=== PATIENT | male | born 1960 | race Caucasian/White ===

== ENCOUNTER 2017-10-17 07:31 | Observation (INO) | payer OTHER ==
[2017-10-14 12:21] LABS: BASOPHILS # (AUTO) 0.1 (0.0-0.1); EOSINOPHILS # (AUTO) 0.2 (0.0-0.4); EOSINOPHILS % 2.8 % (0.0-6.0); HEMATOCRIT 46.3 % (38.2-49.6); HEMOGLOBIN 15.9 g/dL (14.0-18.0); LYMPHOCYTES # (AUTO) 2.5 (1.0-3.2); MEAN CORPUSCULAR HEMOGLOBIN 30.8 pg (28-32); MEAN CORPUSCULAR HGB CONC 34.3 g/dL (31-35); MEAN CORPUSCULAR VOLUME 89.6 fL (81-99); MONOCYTES # (AUTO) 0.6 (0.2-0.8); MONOCYTES % 10.2 % (4.4-11.3); NEUTROPHILS # (AUTO) 2.7 (2.1-6.9); NEUTROPHILS % 44.7 % (38.7-80.0); PLATELET COUNT 241 x10e3/uL (140-360); RED BLOOD COUNT 5.17 x10e6/uL (4.3-5.7); RED CELL DISTRIBUTION WIDTH 11.9 % (11.7-14.4)
[~2017-10-17] VITALS: Ht 182.9 cm; Wt 102.1 kg
[~2017-10-17 07:31] MED LIST: ASPIR 8181 MG PO; BACITRACIN 50,000 UNIT VIAL ONE; CEFAZOLIN SOD 2 GM/D5W 50ML 50 ML IV ONE; CELECOXIB 200 MG CAP ONE; DEXAMETHASONE SOD PHOS 10 MG/1 ML VIAL ONE; GABAPENTIN 300 MG CAP ONE; LOTREL 5-20 MG1 EACH PO; MUPIROCIN 2% OINT 22 GM TUBE ONE; ROPIVACAINE 246.25 MG, EPINEPHRINE HCL 1:1000 0.5 MG, CLONIDINE HCL 0.08 MG, KETOROLAC ... INJ ONE; TRANEXAMIC ACID 1,000 MG/10 ML ML ONE
[2017-10-17] MEDS ORDERED: MUPIROCIN 2% OINT 22 GM TUBE ONE (09:08)
[2017-10-17] MEDS: SODIUM CHLORIDE 0.9% 1000ML 1,000 ML IV SCH ×2 (09:09→19:05)
[2017-10-17] MEDS ORDERED: DIPHENHYDRAMINE HCL INJ 50 MG/ML VIAL IM/IV PRN (09:15)
[2017-10-17] MEDS ORDERED: DOCUSATE SODIUM 100 MG CAP PO PRN (09:15)
[2017-10-17] MEDS ORDERED: ACETAMINOPHEN 650 MG SUPP PR PRN (09:15)
[2017-10-17] MEDS ORDERED: ONDANSETRON HCL INJ 2 MG/ML VIAL IV PRN (09:15)
[2017-10-17] MEDS ORDERED: PROMETHAZINE HCL (IM) 25 MG/ML VIAL INJ PRN (09:15)
[2017-10-17] MEDS ORDERED: ZOLPIDEM TARTRATE 5 MG TAB PO PRN (09:15)
[2017-10-17] MEDS ORDERED: HYDROCODONE/APAP 5MG-325MG TAB PO PRN (09:15)
--- NOTE | 2017-10-17 09:36 | Diagnostic Imaging Report ---
PROCEDURE: X-RAY LEFT KNEE, ONE OR TWO VIEWS COMPARISON: None. INDICATIONS:POST OP, LEFT KNEE SURGERY TODAY FINDINGS: See conclusion. CONCLUSION: Status post total left knee replacement with surrounding soft tissue swelling, air and ayesha consistent with recent surgery. No acute fractures. Dictated by: Jorge Vigil M.D. on 10/17/2017 at 9:45 Electronically approved by: Jorge Vigil M.D. on 10/17/2017 at 9:45
[2017-10-17] MEDS ORDERED: FENTANYL CITRATE/PF 100MCG/2 ML INJ ONE ×2 (09:55→18:30)
[2017-10-17 12:43] VITALS: BP 124/79
[2017-10-17 13:10] VITALS: BP 124/79
[2017-10-17 13:25] VITALS: BP 124/79
[2017-10-17 13:29] VITALS: BP 124/79
[2017-10-17] MEDS: ACETAMINOPHEN 1000 MG/100 ML IV SCH ×3 (13:50→23:02)
[2017-10-17] MEDS ORDERED: CEFAZOLIN SOD 1 GM/NS 50ML 50 ML IV SCH (14:00)
[2017-10-17] MEDS: CEFTRIAXONE SOD 1 GM VIAL IV SCH ×2 (15:05→22:14)
--- NOTE | 2017-10-17 15:45 | Operative Report ---
DATE OF PROCEDURE: October 17, 2017 DOCTOR ASSISTANT: Tyrese Alaniz PA-C The patient was brought to the operating room for induction of anesthesia. Throughout this case, my PA's assistance was necessary for retraction of soft tissue and positioning of the extremity. This allows for efficient and technically successful execution of the operation and is considered medically necessary. PREOPERATIVE DIAGNOSIS: Osteoarthritis, left knee. POSTOPERATIVE DIAGNOSIS: Osteoarthritis, left knee. PROCEDURE: Left total knee arthroplasty. INDICATIONS: The patient is a 57-year-old gentleman who has advanced osteoarthritis in his left knee. He has failed extensive conservative management under the care of outside physicians. He states the symptoms are severely compromising his quality of life. He is motivated to proceed with a left total knee replacement. The risks, benefits, hospital stay, recovery and realistic expectations have been discussed at length. All of his questions have been answered. He states he understands and wishes to proceed. DESCRIPTION OF PROCEDURE: The patient was brought to the operating room and placed under general anesthetic. He received a regional block, prophylactic antibiotics and tranexamic acid in the holding area. His left lower extremity was prepped and draped in a sterile manner. A preoperative time out was performed. The extremity was exsanguinated, and a proximal tourniquet was inflated to 300 mmHg. A standard anterior approach with a medial parapatellar arthrotomy was performed. Soft-tissue releases were performed to bring the knee up into flexion with the patella everted. Marginal osteophytes and meniscal remnants were removed. The cruciate ligaments were sacrificed. A [employer] II posterior stabilized knee system was used throughout the case. An extramedullary cutting guide was used to resect the proximal tibia. The tibial baseplate was noted to be a size 7. The central fin punch was impacted, and attention was directed towards the distal femur. An intramedullary cutting guide was used to resect the distal femur in 6 degrees of valgus and external rotation referenced off of a combination of landmarks including Shawnee's line, the epicondylar axis and the posterior condyles. The femoral component was also noted to be a size number 7. The anterior and posterior cuts were made. Trial reductions were performed. The patient was noted to have full range of motion and excellent stability in both flexion and extension with a 9 mm ultracongruent tibial insert. The patella was then resurfaced with a 32 mm x 9 mm patellar button. The thickness was checked before and after resurfacing and was exactly 26 mm each time. Patellar tracking was noted to be concentric. The trial implants were then all removed. A 100 mL premixed pericapsular injection was then placed into the tissue around the knee joint. The knee was thoroughly irrigated with a shower-tip pulsatile lavage. The components were then cemented into place using a single mix of high-viscosity Simplex cement preloaded with antibiotics. Care was taken to remove all extravasated cement. The wound was further irrigated while the cement cured. The arthrotomy was then carefully closed with interrupted #1 Ethibond. The knee was put through flexion and extension to ensure a secure closure. The skin was closed with subcuticular Vicryl and ayesha. A sterile bandage was applied. The patient was extubated and transported to the recovery room in stable condition. Blood loss was minimal. All needle and sponge counts were correct. Job#: [id number]
[2017-10-17 16:16] VITALS: BP 120/68
[2017-10-17] MEDS: CELECOXIB 100 MG CAP PO SCH (17:24)
[2017-10-17] MEDS: ASPIRIN 325 MG TAB PO SCH (17:24)
[2017-10-17] MEDS ORDERED: PHENYLEPHRINE HCL 1% 10 MG/ML VIAL ONE (18:19)
[2017-10-17] MEDS ORDERED: VASOPRESSIN INJ 20 UNIT/ML VIAL ONE (18:19)
[2017-10-17] MEDS ORDERED: EPHEDRINE SULFATE INJ 50 MG/10 ML SYR ONE (18:20)
[2017-10-17] MEDS ORDERED: LIDOCAINE HCL 2% LOCAL INJ 5 ML SDV VIAL INJ ONE (18:20)
[2017-10-17] MEDS ORDERED: DEXAMETHASONE SOD PHOS INJ 4 MG/ML VIAL ONE (18:20)
[2017-10-17] MEDS ORDERED: KETOROLAC TROMETHAMINE 30 MG/ML VIAL ONE (18:20)
[2017-10-17] MEDS ORDERED: SEVOFLURANE INHAL SOLN 250 ML PEN BTL ONE (18:20)
[2017-10-17] MEDS ORDERED: ONDANSETRON HCL INJ 2 MG/ML VIAL ONE (18:20)
[2017-10-17] MEDS ORDERED: PROPOFOL IV EMULSION 10 MG/ML 20 ML VIAL ONE (18:20)
[2017-10-17] MEDS ORDERED: LIDOCAINE 2% /EPINEPHRINE 20 ML SDV INJ ONE (18:29)
[2017-10-17] MEDS ORDERED: ROPIVACAINE 0.5% 5 MG/ML 30 ML SDV ONE (18:29)
[2017-10-17] MEDS ORDERED: MIDAZOLAM HCL 2 MG/2 ML VIAL ONE (18:30)
[2017-10-17] MEDS ORDERED: MORPHINE SULFATE INJ 10 MG/ML ONE (18:30)
[2017-10-17 20:00] VITALS: BP 126/65
[2017-10-18] VITALS: BP 115/59
[2017-10-18 00:14] VITALS: BP 115/59
[2017-10-18] MEDS: HYDROCODONE/APAP 7.5MG-325MG 1 EA TAB PO PRN ×4 (02:09→13:38)
[2017-10-18] MEDS: KETOROLAC TROMETHAMINE 30 MG/ML VIAL IV PRN ×2 (03:07→10:49)
[2017-10-18 04:00] VITALS: BP 122/67
[2017-10-18] MEDS: ACETAMINOPHEN 1000 MG/100 ML IV SCH (04:38)
[2017-10-18] MEDS: SODIUM CHLORIDE 0.9% 1000ML 1,000 ML IV SCH ×2 (04:40→15:09)
[2017-10-18] MEDS: CEFTRIAXONE SOD 1 GM VIAL IV SCH ×2 (06:16→15:06)
[2017-10-18 07:23] LABS: HEMATOCRIT 39.2 % (38.2-49.6); HEMOGLOBIN 13.3 g/dL (14.0-18.0)
[2017-10-18] MEDS: CELECOXIB 100 MG CAP PO SCH (08:20)
[2017-10-18] MEDS: ASPIRIN 325 MG TAB PO SCH (08:20)
[2017-10-18 08:54] VITALS: BP 128/72
[2017-10-18] MEDS ORDERED: AMLODIPINE BESYLATE PO SCH (09:00)
[2017-10-18] MEDS ORDERED: BENAZEPRIL HCL 10 MG TAB PO SCH (09:00)
[2017-10-18] MEDS ORDERED: AMLODIPINE BESYLATE 5 MG TAB PO SCH (09:00)
[2017-10-18] MEDS ORDERED: BENAZEPRIL PO SCH (09:00)
[2017-10-18] MEDS ORDERED: [UNRECOGNIZED DRUG - OTHER] PO SCH (09:00)
[2017-10-18] MEDS ORDERED: ACETAMINOPHEN 1000 MG/100 ML IV PRN (09:15)
[2017-10-18 09:20] VITALS: BP 128/72
[2017-10-18] MEDS ORDERED: ASPIRIN325 MG PO (09:48)
[2017-10-18 12:23] VITALS: BP 142/75
[2017-10-18] MEDS ORDERED: NORCO 7.5-3251 EACH PO (14:29)
== END 2017-10-18 15:33 | disposition home or self-care (01) ==
LOC: OR 07:31 → INTOOBSV 11:48 → MED/SURG 11:48
PROVIDERS: ADMIT Specialist; ATTEND Specialist
DX: M17.12 Unilateral primary osteoarthritis, left knee (principal); I10 Essential (primary) hypertension; D64.9 Anemia, unspecified
CPT/HCPCS: 36415; 85014; 85018; 85025; 86850; 86900; 86920; 97139; G0378; J0171; J0696; J1100; J1885; J2001; J2250; J2270; J2370; J2405; J2795